=== PATIENT | male | born 2000 | race Caucasian/White ===

== ENCOUNTER 2023-10-28 18:46 | Emergency (ER) | payer BC, SELFPAY ==
[2023-10-28 18:51] VITALS: BP 150/71
[2023-10-28 20:04] VITALS: BP 133/74; BMI 34.7
[2023-10-28 21:02] LABS: Urine Albumin Negative (Neg - Trace); Urine Bilirubin Negative (Negative); Urine Character Clear (Clear); Urine Color Yellow; Urine Glucose Negative (Negative); Urine Ketone Negative (Negative); Urine Leukocyte Negative (Negative); Urine Nitrite Negative (Negative); Urine Occult Blood Negative (Negative); Urine Specific Gravity 1.015 (<1.030); Urine Urobilinogen Negative (Neg - 1+); Urine pH 6.5 (5.0-9.0)
--- NOTE | 2023-10-28 21:05 | ED.GENMED ---
History of Present Illness
General
Chief Complaint: Male Genito-Urinary Symptoms
Source: patient
Exam Limitations: none
Time Seen by Provider: 10/28/23 20:24
History of Present Illness
History of Present Illness:
23-year-old male presents with bilateral testicular pain. Started yesterday. Patient states that pain was moderate yesterday and went to bed. When he woke up this morning it seemed a bit better throughout the afternoon. He then was playing video
game got out of his chair and the pain became much worse again. No dysuria. No flank pain. Has not been sexually active in 3 to 4 months. No hematuria. No direct injury.
Past History
Past History
ED Past Medical History: Psychiatric (Depression)
ED Past Surgical History: None
Social History
Tobacco: Non-smoker
Alcohol: None
Drug: None
Personal: Single
Living: with family
Phy Exam
Physical Exam
Physical Exam:
CONSTITUTIONAL Vital signs reviewed, Patient alert and oriented to person, place and time. Well-appearing
HEAD atraumatic, normocephalic.
EYES eyelids normal to inspection, Extraocular muscles intact, Conjunctiva normal, Sclera normal.
NECK normal range of motion, Trachea midline, no jugular venous distention.
RESP no respiratory distress
BACK No obvious deformities
circumcised, penis normal, epididymal tenderness bilaterally with mild testicular tenderness. Normal cremasteric reflex bilaterally. Normal testicular position
UPPER EXTREMITY Gross Range of motion normal, gross motor strength normal
LOWER EXTREMITY Gross range of motion normal, Gross motor strength normal
NEURO Speech normal, No focal motor deficits include, Praful coma scale 15, Memory normal, Cranial Nerves intact to screening exam.
SKIN Skin warm, dry, and normal in color.
PSYCHIATRIC Patient oriented to person place and time, Normal affect.
Course
Orders/Labs/Results
Orders:
Orders
10/28/23 18:50
US Scrotum Urgent
Comment:
Reason For Exam: testicular pain
10/28/23 20:53
Urinalysis Reflex To Culture Urgent
Date Specimen was Collected: 10/28/23
Time Specimen was Collected: 20:52
10/28/23 21:00
Ibuprofen [Motrin] 600 mg PO NOW STA
10/28/23 21:05
Doxycycline [Vibramycin] 100 mg PO NOW STA
Vital Signs
Initial and Last Documented VS:
Initial Vital Signs
Temp Pulse Resp Pulse Ox
98.3 F 81 18 99
10/28/23 18:49 10/28/23 18:49 10/28/23 18:49 10/28/23 18:49
Last Documented Vital Signs
Temp Pulse Resp BP Pulse Ox
98.5 F 85 18 133/74 98
10/28/23 20:04 10/28/23 20:04 10/28/23 20:04 10/28/23 20:04 10/28/23 20:04
MDM/Problems Addressed
MDM/Problems Addressed:
Epididymoorchitis
*Radiology
Radiology exam reviewed: radiology read reviewed
*Pulse Oximetry
Patient hypoxic: no
*Critical Care Note
Total Time (30-74mins, 75-104mins- exclusive of procedures): Not Applicable
Data Reviewed
Source: patient
Patient Management
Discussion with other providers: Fire Prevention Captain (Case discussed with urology who recommends doxycycline for 10 days)
Escalation/DeEscalation of care consider admission/obs:
Antibiotics, NSAIDs and tight scrotal support. Outpatient follow-up recommend
ED Attending Note
-
Portions of this chart may have been created with voice recognition software.� Occasional wrong word or��sound alike� substitutions may have occurred due to the inherent limitations of voice recognition software.
Discharge Plan
Departure
Patient Disposition: Home (Routine Discharge)
Date of Disposition: 10/28/23
Time of Disposition: 21:07
Patient with high blood pressure during this ER visit?: No
Discharge Problem:
Acute epididymo-orchitis
Prescriptions:
New
doxycycline hyclate 100 mg capsule
100 mg PO BID Qty: 20 0RF
Referrals:
Dann Hutton DO [Family Provider] -
Activity Restrictions/Additional Instructions:
Please wear tight fitting underwear and use ibuprofen every 6 hours for pain control. Please see your doctor in the next 3 days for follow-up and reevaluation. If symptoms persist, urology follow-up may be necessary. Return immediately for
worsening pain, fevers, swelling or any other concerns.
Interventions
Interventions:
*Risk Screen - Suicide Last Done: 10/28/23 18:49
*General Assessment Last Done: 10/28/23 18:49
*Neglect/Abuse Screening Last Done: 10/28/23 18:49
ED-Male Genitourinary Assessment Last Done: 10/28/23 20:04
Discharge Date and Time
Print Language: BENGALI
[2023-10-28] MEDS: MOTRIN 600 MG PO (21:09)
[2023-10-28] MEDS: VIBRAMYCIN 100 MG PO (21:24)
== END 2023-10-28 21:38 | disposition home or self-care (01) ==
LOC: EMR 18:46
PROVIDERS: EMERGENCY PHYSICIAN Emergency Medicine; FAMILY PHYSICIAN Family Medicine
DX: N45.3 Epididymo-orchitis (principal)
CPT/HCPCS: 99284; 76870; 81003; 93976